=== PATIENT | female | born 1980 | race Asian ===

== ENCOUNTER 2016-07-02 16:53 | Inpatient (IN) | payer OTHER ==
[~2016-07-02] VITALS: Ht 161.3 cm; Wt 63.5 kg
[2016-07-02] MEDS ORDERED: Lactated Ringer's 1,000 ML IV PRN (17:29)
[2016-07-02] MEDS ORDERED: Sodium Chloride LOK Flush 10 mL Syringe IVFLUSH PRN (17:30)
--- NOTE | 2016-07-02 18:13 | PCM.HPOB ---
Subjective Date of Service: Jul 02, 2016 Referring Provider: Admitting Physician: Seth Tran MD Primary Care Physician: Nopcp Attending Physician: Seth Tran MD Chief Complaint vasaprevia History of Present History of Present Illness 35-year-old woman at 36 weeks gestation admitted to the [facility] for section after Dr. Tran was notified of obstetric ultrasound showing vasa previa. She was seen in the [facility] with you after feeling "faint" and having a pain in her right lower quadrant which resolved after patient was placed on her side for a period of time.-History per patient labs: A positive Antibody screen negative RPR and HIV screens were nonreactive Rubella and Varicella immune Hepatitis B surface antigen and hepatitis C negative. Gonorrhea and Chlamydia negative Hemoglobin A1c 5.8 12/10/2015. Group B strep status unknown Mild microcytic anemia hemoglobin 10.9, MCV 73 as of mid May. She is on ferrous sulfate, vitamin, vitamin C. Obstetrical Complications: Other (vasa previa, placenta previa) Past Medical History Obstetrical History: None Gynecologic History: None Medical History: Denies any medical history Surgical History: Denies any previous surgeries Social History: Patient is from the [facility]. Lives with and mother and [id number]. Abuse screening negative with patient alone in room. Hx Tobacco Use: No Smoking Status: Never Smoker Hx Alcohol Use: No Hx Substance Use: No Past Family History Living Arrangement: with Family Genetic Screening/Counseling Genetic Screening/Counseling: Unknown (patient denies having any headache screens performed. Patient claims to have been told she has thalassemia beta, but no information on what subtype or carrier status.) Baby father-had child w defect: No Review of Systems Constitutional: Y: Dizziness (in the past week), Change of appitite, Fever Eyes: Denies: Blurred Vision ENT: Denies: Nasal Congestion, Ulcers/Sores in Mouth Cardiovascular: Denies: Chest Pain Respiratory: Denies: Cough, Pleuritic Chest Pain, Wheezing Gastrointestinal: Denies: Abdominal Pain Genitourinary: Denies: Dysuria, Hematuria Musculoskeletal: Denies: Neck Pain, Redness Skin/Breasts: Denies: Discharge Skin: Denies: Bruising Neurological: Reports: Dizziness, Weakness (in the last week), Denies: Change in Speech, Numbness Psychologic: Denies: Depression Medications Home medications Daily vitamin Ferrous sulfate Allergy Coded Allergies: No Known Drug Allergies (Verified Allergy, Unknown, 06/24/16) Exam Vital Signs 133/82 83 bpm 98.2F 140 pounds 0 pain Exam 140 bpm baseline, moderate variability 15 x 15 Objective Patient is lying in bed in no apparent distress, accompanied by . Constitutional: Well-developed, Well-nourished, Normal habitus HEENT: Atraumatic, PERRLA, EOMI, Scleral Anicteric, Mucous Membr Moist/[place] Lungs: Clear to Auscultation, Normal Air Movement Heart: Regular Rate/Rhythm, Normal S1, Normal S2, No Murmurs/Rubs/Gallops Abdomen: Gravid, No tenderness Lymphatic: Normal: Axilla Palpation of Nodes, Neck Palpation of Nodes Extremities: Pulses Palpable x4, Warm Neurological/Psychiatric: Alert, Oriented X3, Cooperative, No Acute Distress Neuro: Grossly Neurologically Intact, Reflexes 2+, No Clonus noted Labs/Diagnostics Labs CBC pending Cross and match pending Ultra Sound Ultrasonogram is not available to me at this time. This verbally conveyed by the reading radiologist and the attending physician that patient had blood vessels in front of the cervix consistent with vasa previa Maternal Blood Type: A Hx Rho(D) Immune Globulin: No Group B Strep Results: Not done Previous with GBS: No Rubella: Immune Lab History: Positive for: Hx Chicken Pox, Negative for: Hx Gonorrhea, Hx HIV, Hx Herpes, Hx Syphilis OB Intrapartum Assessment/Plan Assessment 35-year-old woman, , 36 weeks gestation, advanced maternal age, unremarkable laboratory work, diagnosis of marginal placenta previa, new diagnosis of vasa previa. No sign of distress. Problems: (1) Advanced maternal age (AMA) in Status: Acute ICD Code: 659.60 (2) Vasa previa Status: Acute ICD Code: O69.4XX0 Pain Evaluation: Adequate Pain Control Intrapartum plan Patient is being admitted for observation with the plan to do section tomorrow at 7:30 AM. Continue to monitor mother and baby on continuous heart rate monitor. No vaginal checks, no cervical checks no instrumentation. Nothing by mouth after midnight Plan was discussed with patient, in the room, questions were answered, patient stated understanding and agreement. Attending Statement The patient was seen and examined together with Dr. Zuhair Flood DO 2016 and I agree with the history, exam and plan as outlined in the note above. Zuhair Toro DO Jul 02, 2016 18:04 Seth Tran MD Jul 04, 2016 08:01
[2016-07-02 18:48] LABS: Mean Corpuscular Volume 69.8 fL (81-100)
[2016-07-03] MEDS ORDERED: Carboprost 250 mCg/mL Inj IM PRN ×2 (06:00→09:10)
[2016-07-03] MEDS ORDERED: Sodium Citrate-Citric Acid 15 mL Solution PO SCH (06:00)
[2016-07-03] MEDS ORDERED: Methylergonovine 0.2 mg/mL Inj IM PRN ×2 (06:00→09:10)
[2016-07-03] MEDS ORDERED: Hemorrhage Kit, Post Partum XX ONE ×2 (06:00→09:10)
[2016-07-03] MEDS ORDERED: Oxytocin 10 Unit/mL Inj IM PRN ×2 (06:00→09:10)
[2016-07-03] MEDS ORDERED: CeFAZolin Inj 2 GM in IV Premix 1 EACH IV ONE (07:40)
[2016-07-03] MEDS ORDERED: CeFAZolin 2 Gm/50 mL D5W Duplex Bag IV ONE (07:40)
[2016-07-03] MEDS ORDERED: Lactated Ringer's 1,000 ML IV PRN (07:44)
--- NOTE | 2016-07-03 07:44 | PCM.HPANE ---
Patient Data Surgeon Admitting Provider:Seth Tran MD Attending Provider:Seth Tran MD Primary Care Physician:Katherine Other Provider: Reason for Visit Vasaprevsoo VASANAYELI Ht/WT & BMI Body Mass Index Allergies Coded Allergies: No Known Drug Allergies (Verified Allergy, Unknown, 06/24/16) Diabetes History Hx Diabetes?: No MRSA MRSA: No Medications Hypertension Medication: No Home Meds Incl Beta Susan: No History History of ENT Problems?: No Hx of Heart Problems?: No Hx of Respiratory Problem?: No Hx Neurologic Problems?: No Hx of GI Problems?: No Hx of Problems?: No Female Hx: Positive for:: Currently (vasa previa, low lying placenta) Hx Musculoskeletal Problems?: No Hx of Psycho/Social Problems?: No Hx Surgeries?: No Hx Any Other Health Problems?: No Hx Alcohol Use: NoHx Substance Use: No Smoking Status: Never Smoker Stop/Bang EWELINA Risk Assessment: Low Risk, <3 Yes Risk Assessment Category Category 1A: Patient has history of documented sleep apnea, and HAS NOT received any narcotic, sedative or anesthesia administration during this stay. Category 1B: Patient has history of documented sleep apnea, and HAS received any narcotic , sedative or anesthesia administration during this stay Category 2: Patient has SUSPECTED Obstructive Sleep Apnea, and HAS received any narcotic , sedative or anesthesia administration during this stay. Category 3: Patient has SUSPECTED Obstructive Sleep Apnea and HAS NOT received narcotic, sedative or anesthesia administration during this stay. Category 4: Outpatient in Procedural Areas with known sleep apnea or who screen positive for High Risk via the STOP/BANG questionnaire. Exam Exam General Appearance: Alert, Oriented X3, Cooperative, No Acute Distress HEENT/AIRWAY: MP 2 Lungs: Clear to Auscultation, Normal Air Movement Heart: Exam Unremarkable, Regular Rate/Rhythm, No Murmurs/Rubs/Gallops Meds/Labs/Diagnostics Admission Meds Current Medications Citric Acid/ Sodium Citrate (Bicitra) 30 ml PREOP PO Last administered on t 06:01; Start 07/03/16 at 06:00; Stop 07/03/16 at 06:01; Status DC Labs Test 07/02/16 18:20 White Blood Count 8.6th/mm3 (3.8-10.1) Red Blood Count 5.13mil/mm3 (3.90-5.20) Hemoglobin 11.8g/dL (12.0-15.6) Hematocrit 35.8% (35.0-46.0) Mean Corpuscular Volume 69.8fL (81-100) Mean Corpuscular Hemoglobin 23.0pg (27.0-35.0) Mean Corpuscular Hemoglobin Concent 33.0% (32.0-37.0) Red Cell Distribution Width 14.8% (12.3-15.4) Platelet Count 312bil/L (150-400) Plan Impression Patient chart reviewed, patient interviewed and anesthestic plan with risks, benefits, and alternatives discussed, and informed consent obtained. ASA Physical Status: ASA3 Severe Disease Anesthetic Plan: SAB Bene/Risks/Altern/Consents: Yes HP Complete Prior to Induction: Yes Other 2 units of prbcs available in hospital. Tom Su MD Jul 03, 2016 07:18
[2016-07-03] MEDS ORDERED: MetoCLOpramide 5 mg/mL 2 mL Inj IVPUSH PRN (07:45)
[2016-07-03] MEDS ORDERED: fentaNYL-PF 50 mCg/mL 2 mL Inj IVPUSH PRN (07:45)
[2016-07-03] MEDS ORDERED: HYDROmorphone 1 mg/mL Inj IVPUSH PRN (07:45)
[2016-07-03] MEDS ORDERED: Atropine 0.4 mg/mL Inj IV PRN (07:45)
[2016-07-03] MEDS ORDERED: EPHEDrine Sulfate 50 mg/mL Inj IVPUSH PRN (07:45)
[2016-07-03] MEDS ORDERED: Ondansetron 2 mg/mL 2 mL Inj IVPUSH PRN (07:45)
[2016-07-03] MEDS ORDERED: Morphine PF 1 mg/mL 10 mL Inj INTRATHEC ONE (07:45)
[2016-07-03] MEDS ORDERED: Oxytocin 10 Unit/mL Inj ONE (08:37)
[2016-07-03] MEDS ORDERED: Bupiv-Spinal 0.75%/Dex 8.25% 2 mL Inj ONE (08:37)
[2016-07-03] MEDS ORDERED: EPHEDrine/NS 5 mg/mL 5 mL Syringe ONE (08:37)
[2016-07-03] MEDS ORDERED: Ondansetron 2 mg/mL 2 mL Inj ONE (08:37)
[2016-07-03] MEDS ORDERED: Phenylephrine/NS-PF 100 mCg/mL 5 mL Syringe IVPUSH ONE (08:37)
[2016-07-03] MEDS ORDERED: Sodium Chloride LOK Flush 10 mL Syringe IVFLUSH PRN (09:10)
[2016-07-03] MEDS ORDERED: LANOlin HPA 7 Gm Ointment TOPICAL PRN (09:10)
[2016-07-03] MEDS ORDERED: hydrOXYzine Pamoate 25 mg Capsule PO PRN (09:10)
[2016-07-03] MEDS: Lactated Ringer's 1,000 ML IV SCH ×2 (09:10→18:03)
[2016-07-03] MEDS ORDERED: Oxytocin 30 Units/500 mL LR 30 UNITS in IV Premix 1 EACH IV PRN (09:10)
--- NOTE | 2016-07-03 09:25 | PCM.ANEP1 ---
Post Anesthesia Phase 1 PACU Phase 1 Assessment Date of Service: Jul 02, 2016 Vital Signs BP: 103/58 HR: 77 SpO2: 100% T: 36.9 Anesthetic Administered: SAB Level of Alertness: Awake, talking ARMAS's with Equal Strength: No (residual SAB) Pain: No Nausea or Vomiting: No Oxygen Delivery: Room Air Lungs: Clear to Auscultation, Normal Air Movement Dermatome Level: T8 (Costal Margin) Tom Su MD Jul 03, 2016 09:25
[2016-07-03] MEDS ORDERED: Morphine PF 1 mg/mL 10 mL Inj ONE (09:27)
--- NOTE | 2016-07-03 09:30 | PCM.OBCSEC ---
Delivery Date of Service Jul 03, 2016 Pre Procedure Diagnosis 1. Vasa Previa 2. Low-lying placenta 3. Advanced maternal age Post Procedure Diagnosis 1. Vasa Previa 2. Advanced maternal age 3. Intramural uterine fibroid 4. Complete placenta previa Procedure 1. Primary classical delivery through a Pfannenstiel incision. Procedure: Planned Minister Of Religion/Utility Mechanic Supervisor Surgeon: Seth Tran MD Assistants: Dara Taylor was necessary for this procedure to help with exposure and her surgical expertise. Indication for Procedure Patient's a 35-year-old 1 para 0 at 36 weeks gestation who was noted to have a low-lying placenta with vasa previa on ultrasound on 07/02/2016. Findings Intraoperative findings showed a uterus that was irregular shaped due to a fibroid in the left cornual region. The infant was in a transverse lie with back down. The lower uterine segment contained very large vessels that were apparent on the surface. The fallopian tubes and ovaries were normal in appearance bilaterally however they were difficult to visualize due to distorted uterine anatomy and posterior location. The endometrial cavity was deviated to the right side and the placenta was posterior and was felt to cover the cervical os which was deviated to the right. Obstetrical Findings: (Female) Weight (2407 grams) Presentation 1 minute (7) 5 minutes (8) 10 minutes (9) Placenta (Intact/Normal) Complications none Analgesia/Medications Obstetrical Anesthesia: Other (Spinal) Procedure Details Patient was taken to the operating room where her spinal anesthesia was found to be adequate. She was placed in a lithotomy position in a leftward tilt and prepared and draped in the normal sterile fashion. A Pfannenstiel incision was made with scalpel and this incision was carried down to the underlying fascia. The fascia was nicked in the midline and this incision was extended laterally with the Anderson scissors. The underlying rectus muscle was dissected off with blunt and sharp dissection. The rectus muscles were in midline and the peritoneum was tented up and entered sharply with the Metzenbaum scissors. This incision was extended superiorly and inferiorly and then expanded using the surgeon's hands and gentle traction. The lower uterine segment was identified a bladder flap was created. Due to large vessels over lower uterine segment and position of the infant a vertical midline incision was made high on the uterus and extended to the fundal region. The infant was rotated into a breech position and delivered in a standard breech fashion. The cord was doubly clamped and ligated after 1 minute and handed off to the awaiting Pediatricians. Cord blood was sent. The placenta was removed manually and the uterus was exteriorized and cleared of all clots and debris. The uterine incision was then repaired in 3 layers with 0 Vicryl suture. The gutters were irrigated with copious amounts of normal saline. Good hemostasis was assured. The uterus was returned to the patient's perineal cavity. The uterine incision was inspected a second time and noted to be hemostatic. The fascia was then reapproximated with 0 Vicryl suture in a running fashion. The subcutaneous layer was closed with 0 plain gut. The skin was closed with a 4-0 Monocryl in a subcutaneous fashion. Dermabond and Steri-Strips are applied. All lap, instrument, and needle counts were correct 2 at the procedure the patient was taken to her room awake and in good condition. Specimen Specimens: Placenta Input/Output Catheters: Urethral 2 Way Arnold Blood Loss & Administration Estimated Blood Loss: 500 Post Operative Plan Routine and postoperative care. Post delivery Condition: Mom stable Seth Tran MD Jul 03, 2016 09:30
--- NOTE | 2016-07-03 12:56 | PCM.ANEP2 ---
Post Anesthesia Evaluation ASA/CMS Post Anesthesia VS in Patient's Normal Range?: Yes Resp Stable; Airway Patent?: Yes CV Function & Hydration Stable: Yes Mental Status Recovered?: Yes Pain control Satisfactory?: Yes N/V Control Satisfactory?: Yes Tom Su MD Jul 03, 2016 12:55
[2016-07-04] MEDS: oxyCODONE-Acetamin 5-325 mg Tablet PO PRN ×2 (04:01→08:41)
[2016-07-04 06:32] LABS: Mean Corpuscular Hemoglobin 23.2 pg (27.0-35.0); Mean Corpuscular Volume 71.6 fL (81-100)
--- NOTE | 2016-07-04 07:09 | PCM.PNOBPP ---
Subjective Date of Service Jul 04, 2016 Post : Primary Ceserean Delivery Visit History 35-year-old now woman at 36 weeks gestation admitted to the [facility] for section after obstetric ultrasound revealed vasa previa. Previous obstetrical ultrasound on 06/02/2016 showed persistent marginal placenta previa with the inferior edge of posterior placenta 0.7 cm from internal os. labs: A positive Antibody screen negative RPR and HIV screens were nonreactive Rubella and Varicella immune Hepatitis B surface antigen and hepatitis C negative. Gonorrhea and Chlamydia negative Hemoglobin A1c 5.8 12/10/2015. Group B strep status unknown Mild microcytic anemia hemoglobin 10.9, MCV 73 as of mid May. She is on ferrous sulfate, vitamin, vitamin C. Underwent yesterday (post op day 1) with an EBL of 500. Baby was 5lbs 5oz with APGARS 7,8, & 9. Subjective Doing well. Pain under control. Has changed pads three times without saturation. Has some lightheadedness when ambulating. Arnold has been removed. Lochia: Normal Pain Management: PO pain meds Gastrointestinal: Good Appetite, No N/V, Passing Flatus Postop Activity: Ambulating Independently Group B Strep Results: Not done Rubella: Immune Blood Type: A Labs Laboratory Tests 07/04/16 06:15: White Blood Count 14.0, Red Blood Count 3.70, Hemoglobin 8.6, Hematocrit 26.5, Mean Corpuscular Volume 71.6, Mean Corpuscular Hemoglobin 23.2, Mean Corpuscular Hemoglobin Concent 32.5, Red Cell Distribution Width 14.3, Platelet Count 228 Exam Vital Signs Vital Signs 106/58 76 16 36.6 Vital Signs: VS reviewed, stable Exam Abdomen: Fundus firm, Abdomen appropriately tender, Abdomen non-distended : Arnold catheter (Removed minutes before encounter. No voiding on her own as of yet.) Extremities: No cords, Normal pulses, No tenderness/swelling, No edema Lungs: Clear to Auscultation, Normal Air Movement Heart: Regular Rate/Rhythm, Normal S1, Normal S2, No Murmurs/Rubs/Gallops General: Alert, Oriented X3, Cooperative, No Acute Distress Surgical Wound : Wound Location/Description Bandages in place, clean. Dressing & Drainage Status: Dry & Intact, No Odor OB Post Assessment/Plan Assessment 35yo Woman, now , S/P at 36wks gestation due to finding of vasa previa, post op day 1 recovering well without pain or signs of hemorrhagic complications. Hgb 8.4 this AM. Problems: (1) Advanced maternal age (AMA) in Status: Acute ICD Code: 659.60 (2) Vasa previa Status: Acute ICD Code: O69.4XX0 Pain Management: Oral analgesics working well. Pain Evaluation: Adequate Pain Control Post plan: Continue routine post care, Discharge home tomorrow Plan: Encourage ambulation Encourage breast feeding Pain management as above. Re-check H/H tomorrow morning. Zuhair Toro DO Jul 04, 2016 06:52
[2016-07-04] MEDS: Ascorbic Acid 500 mg Tablet PO SCH (08:39)
[2016-07-04] MEDS: Lactated Ringer's 1,000 ML IV SCH ×2 (09:10→22:38)
[2016-07-05] MEDS: oxyCODONE-Acetamin 5-325 mg Tablet PO PRN (00:12)
--- NOTE | 2016-07-05 09:00 | PCM.PNOBPP ---
Subjective Date of Service Jul 05, 2016 Post : Primary Ceserean Delivery Visit History 35-year-old G1 now P1 who is post-operative day 2 s/p section at 36 weeks gestation after obstetric ultrasound (06/02/16) revealed vasa previa and a low-lying placenta. labs: A positive Antibody screen negative RPR and HIV screens were nonreactive Rubella and Varicella immune Hepatitis B surface antigen and hepatitis C negative. Gonorrhea and Chlamydia negative Hemoglobin A1c 5.8 12/10/2015. Group B strep status unknown Mild microcytic anemia hemoglobin 10.9, MCV 73 as of mid May. She is on ferrous sulfate, vitamin, vitamin C. Underwent yesterday (post op day 1) with an EBL of 500. Baby was 5lbs 5oz with APGARS 7,8, & 9. Subjective Pt doing well this morning. Pain well controlled. She is ambulating and voiding without difficulty. is going well with supplemental bottle feeding. Lochia: Normal Pain Management: PO pain meds Gastrointestinal: Good Appetite, No N/V, Passing Flatus Postop Activity: Ambulating Independently Group B Strep Results: Not done Rubella: Immune Blood Type: A RH Type: Positive Labs Laboratory Tests 07/04/16 06:15: White Blood Count 14.0, Red Blood Count 3.70, Hemoglobin 8.6, Hematocrit 26.5, Mean Corpuscular Volume 71.6, Mean Corpuscular Hemoglobin 23.2, Mean Corpuscular Hemoglobin Concent 32.5, Red Cell Distribution Width 14.3, Platelet Count 228 Exam Vital Signs Vital Signs Temp 98.6F, BP 132/84, HR 89, RR 18 Vital Signs: VS reviewed, stable Exam Abdomen: Fundus firm, Abdomen soft, Abdomen appropriately tender : Voiding without difficulty Extremities: No tenderness/swelling Lungs: Clear to Auscultation Heart: Regular Rate/Rhythm, No Murmurs/Rubs/Gallops General: Alert, Oriented X3 Surgical Wound : Incision General Appearence: Steri Strips, Intact, Well Approximated, No Erythemia, No Discharge OB Post Assessment/Plan Assessment 35-year-old G1 now P1 who is post-operative day 2 s/p section at 36 weeks gestation after obstetric ultrasound (06/02/16) revealed vasa previa and a low-lying placenta who is recovering appropriately or with X problem. Pain Evaluation: Adequate Pain Control Post plan: Continue routine post care Plan: Encourage ambulation Encourage breast feeding Pain management as above. Attending Statement The patient was seen and examined and I agree with the history, exam and plan as outlined in the note above. Doing well postoperative day#2, plan to discharge home today. Follow up in 2 weeks for incision check and six weeks for a check. Tabatha Cadena DO Jul 05, 2016 08:47 Estela Quinonez MD Jul 05, 2016 11:23
--- NOTE | 2016-07-05 09:06 | PCM.DIOB ---
Obstetrical Disch Instruction Date of Service: Jul 05, 2016 Dates of Hospitalization Date of Hospital Admission Jul 02, 2016 at 17:12 Providers Admitting Physician: Seth Tran MD Primary Care Physician: Katherine Attending Physician: Seth Tran MD Discharge Diagnosis Discharge Diagnosis Pre-term , s/p delivery Vasa Previa Advanced maternal age Intramural uterine fibroid Complete placenta previa Post Operative diagnosis 1. Vasa Previa 2. Advanced maternal age 3. Intramural uterine fibroid 4. Complete placenta previa Problems: Diet Discharge Diet: No restrictions Activity Discharge Activity-General: Pelvic Rest for 6 weeks, Ice incision 3-5 time/day for 20min, Activity as pain allows, No lifting >15 pounds for 2 weeks Dressing and Incisional Care Dressing Care: Allow Steri Stripes to fall off Hygiene: May shower Additional Instructions Discharge Instructions Continue your vitamin. Please take the iron and vitamin C together for your anemia. Do not take more pain medication (Percocet) than is necessary -- less is better. Percocet pills have Tylenol (acetaminophen) in them at 325mg per pill. Do not take Tylenol in addition to your pain medication but should take one or the other. Both iron and Percocet can give you constipation so you have also been given a prescription for docusate to keep you regular. Be sure to follow up in 2 weeks and then again in [address] [facility]. Pelvic rest for 6 weeks (nothing per vagina including intercourse, tampons) If you have a fever greater than 100.4, please call [facility]. There is always someone injection moulding machine operator to talk to. If you have an increase in bleeding, call [facility]. If you have a lot of bleeding suddenly, especially if you have symptoms of dizziness & weakness with it, get emergency help. When you see [facility] in two weeks, you will be informed of the results of all the labs. If you start experiencing extreme depression, especially if you feel that you are a danger to yourself or your family, seek emergency help. You have been through a lot -- BE SURE TO TAKE CARE OF YOURSELF. Follow Up Plan Follow Up Plan Follow up in 2 weeks and then again in 6 weeks. [facility] Call your provider for: Fever or Chills, Shortness of breath, Heavy vaginal bleeding, Excessive constipation Tabatha Cadena DO Jul 05, 2016 09:06
[2016-07-05] MEDS ORDERED: IBUP800T28 PO (09:10)
[2016-07-05] MEDS ORDERED: OXYC1TAB24 PO (09:10)
[2016-07-05] MEDS ORDERED: FERR-74 PO (09:10)
[2016-07-05] MEDS: Lactated Ringer's 1,000 ML IV SCH (09:10)
[2016-07-05] MEDS ORDERED: DOCU-41 PO (09:10)
[2016-07-05] MEDS ORDERED: Ascorbic Acid PO (09:10)
[2016-07-05 09:15] VITALS: BP 134/82; PULSE 89; RESP 16
[2016-07-05] MEDS: Ascorbic Acid 500 mg Tablet PO SCH (09:38)
--- NOTE | 2016-07-05 10:41 | PCM.DC.OB ---
Obstetrical Discharge Summary Date of Service Jul 05, 2016 Date of hospital admission Jul 02, 2016 at 17:12 Date of Discharge: Jul 05, 2016 Providers Admitting Physician: Steh Tran MD Primary Care Physician: Katherine Attending Physician: Seth Tran MD Diagnosis at Time of Discharge Pre-term s/p delivery Vasa previa Intramural uterine fibroid Complete placenta previa Advanced maternal age Problems: Invasive procedures Primary classical delivery through a Pfannenstiel incision. Date of Procedure: Jul 03, 2016 Brief History and Physical: 35-year-old G1 now P1 who is post-operative day 2 s/p section at 36 weeks gestation after obstetric ultrasound (06/02/16) revealed vasa previa and a low-lying placenta who is recovering appropriately. and delivery complicated by advanced maternal age, vasa Previa, intramural uterine fibroid and complete placenta previa. labs: A positive Antibody screen negative RPR and HIV screens were nonreactive Rubella and Varicella immune Hepatitis B surface antigen and hepatitis C negative. Gonorrhea and Chlamydia negative Hemoglobin A1c 5.8 12/10/2015. Group B strep status unknown Mild microcytic anemia hemoglobin 10.9, MCV 73 as of mid May. She is on ferrous sulfate, vitamin, vitamin C. Vital signs: T 98.6F, BP 132/84, HR 89, RR 18 Exam Abdomen: Fundus firm, Abdomen soft, Abdomen appropriately tender : Voiding without difficulty Extremities: No tenderness/swelling Lungs: Clear to Auscultation Heart: Regular Rate/Rhythm, No Murmurs/Rubs/Gallops General: Alert, Oriented X3 Surgical Wound : Incision General Appearence: Steri Strips, Intact, Well Approximated, No Erythemia, No Discharge . Hospital Course: 35y/o who presented to the [facility] at 36 weeks gestation and was admitted for section after an OB ultrasound on 07/02/16 revealed a low-lying placenta and vasa previa. Patient delivered via section on 07/03/16 without complication and is recovering appropriately. She was discharged home on post-operative day 2 in stable condition. . ([Ascorbic Acid]) 500 MG TABLET 500 MG PO DAILYWM Prescribed by: MARIVEL MARTINEZ DO Docusate Sodium (Colace) 100 Mg Capsule 100 MG PO BID Prescribed by: MARIVEL M BEUNING, DO Ferrous Sulfate (Feosol) 325 Mg Tablet 325 MG PO DAILY Prescribed by: MARIVEL MARTINEZ DO Ibuprofen (Ibuprofen) 800 Mg Tablet 800 MG PO Q8H PRN PRN For Pain Prescribed by: MARIVEL MARTINEZ DO oxyCODONE-Acetaminophen 5-325 mg (oxyCODONE-Acetaminophen 5-325 mg) 1 Each Tablet 1-2 TAB PO Q6H PRN PRN For Pain Prescribed by: MARIVEL MARTINEZ DO Follow-up plan Follow up in 2wks at [facility]. Discharge Diet: No restrictions Discharge Activity-General: Pelvic Rest for 6 weeks, Ice incision 3-5 time/day for 20min, Activity as pain allows, No lifting >15 pounds for 2 weeks Patient instructions Continue your vitamin. Please take the iron and vitamin C together for your anemia. Do not take more pain medication (Percocet) than is necessary -- less is better. Percocet pills have Tylenol (acetaminophen) in them at 325mg per pill. Do not take Tylenol in addition to your pain medication but should take one or the other. Both iron and Percocet can give you constipation so you have also been given a prescription for docusate to keep you regular. Be sure to follow up in 2 weeks and then again in 6 weeks at [facility]. Pelvic rest for 6 weeks (nothing per vagina including intercourse, tampons) If you have a fever greater than 100.4, please call [facility]. There is always someone stoneworking sander to talk to. If you have an increase in bleeding, call [facility]. If you have a lot of bleeding suddenly, especially if you have symptoms of dizziness & weakness with it, get emergency help. When you see [facility] in two weeks, you will be informed of the results of all the labs. If you start experiencing extreme depression, especially if you feel that you are a danger to yourself or your family, seek emergency help. You have been through a lot -- BE SURE TO TAKE CARE OF YOURSELF. Attending Statement: The patient was seen and examined and I agree with the history, exam and plan as outlined in the note above. Marivel Martinez DO Jul 05, 2016 09:10 Estela Quinonez MD Jul 05, 2016 11:27
--- NOTE | 2016-07-05 12:33 | NUR ---
Social Work: Family Assessment MOB: Anne Rodriguez FOB: Ramon Rodriguez NB: Lay Rodriguez Reason for Referral: FOB became angry when baby failed carseat check stating further hospitalization would cost "$50,000." SISAL OPERATOR referred for safety assessment and to provide resources. SISAL OPERATOR met with MOB and NB in the nursery. FOB not present as he has gone home to sleep. MOB apologizes for FOB's anger over the carseat and states that he is very concerned about financial responsibility and was very disappointed that they were not able to take the baby home today. MOB has no concerns about FOB's anger. MOB is very appropriate with NB during assessment. Per staff genetic counselor, both MOB and FOB have been very appropriate and present with NB care. All parties believe FOB is sleep deprived and overwhelmed with premature NB. Current Living Situation: MOB and FOB live together in a home in [place]. Previous Children/CPS History: This is the first child for both MOB and FOB. No CPS involvement Substance abuse Hx: No concerns noted by MOB during assessment. MH History: ARLEN denies any MH concerns for herself of FOB Source of Income: MOB and NB are covered under [facility] [employer]. No secondary insurance. MOB does not work and will be staying home with NB. Both MOB and FOB are concerned for financial responsibility. ARLEN states she did not know she could apply for [employer] as she is still applying for citizenship. SISAL OPERATOR provided [email or web address] information and informed her that she still qualifies despite citizenship status. MOB grateful to hear this. Abuse/DV History: MOB denies any DV or abuse between her and FOB. Supports: MOB states that FOBeatrice's family is close and that they are throwing them a baby shower once baby is discharged home. MOB states they have everything they need to care for the baby (crib, car seat, bottles). Assessment: MOB appears to be appropriate with NB and cites protective factors during assessment. Per staff genetic counselor, FOB has also been appropriate with NB during stay and his anger outburst during the carseat test was "out of character." MOB has no concerns about discharge home with NB. SISAL OPERATOR provided her with [facility] information packet including [place] information, community resources and [facility] Care Application for financial assistance. Social Work contact information left with MOB and staff genetic counselor. If FOB returns and has further questions or concerns. SISAL OPERATOR updated RN and supervisor farm equipment maintenance who will update agricultural inspector. MARIELLE Schwartz
--- NOTE | 2016-07-07 14:00 | PATH ---
SURGICAL PATHOLOGY Attending Physician:Seth Tran, CASE STATUS: Signed Out PATIENT NAME: TROY BRIONES PID: [id number] : 1980 DATE COLLECTED:07/03/2016 23:04 SPECIMEN: Placenta CLINICAL HISTORY: PLACENTA PREVIA, VASA PREVIA 1). PLACENTA FINAL DIAGNOSIS: 1.PLACENTA (375 GRAMS): MATURE PLACENTA WITH NO EVIDENCE OF CHORIOAMNIONITIS OR FUNISITIS. ICD10 CODE O44.10 GROSS DESCRIPTION: The specimen is received in formalin, labeled with the patient's name and consists of an intact placenta and includes placental disc (375 g, 16.6 x 14.8 x 2.8 cm), stump of umbilical cord (length-1.2 cm, diameter-1.3 x 1.1 cm) and membranes. The membranes are ruptured 4.5 cm from the free edge of the placenta and are translucent. The umbilical cord is attached 3.7 cm from the edge of the placenta and contains 3 vessels. The surface is smooth and shiny with no evidence of meconium. The maternal surface is dark maroon with normal cotyledon formation. The placental disc is spongy with no hematomas, infarcts, nodules, masses, or lesions. Section code: (A) edge of placenta with membranes, umbilical cord; (B, C) placenta, 2 full thickness sections. 07/05/16 MICRO DESCRIPTION: See diagnosis. ICD-9 CODES: CPT CODES: 1: 99551 Electronically Signed Out Brayden Miranda MD [facility] Pathology [facility] [address], [place] [address] Technical component performed at [facility], [facility] [address], [address]
== END 2016-07-05 14:12 | disposition home or self-care (01) | DRG 765 ==
LOC: FBCO 16:53 → FBC 17:12
PROVIDERS: ADMIT Obstetrics & Gynecology; ATTEND Obstetrics & Gynecology
PROC: 10S0XZZ Reposition Products of Conception, External Approach (ICD-10-PCS; 2016-07-03)
PROC: 10D00Z0 Extraction of Products of Conception, High, Open Approach (ICD-10-PCS; principal; 2016-07-03 07:48)
DX: O69.4XX0 Labor and delivery complicated by vasa previa, not applicable or unspecified (principal); O44.03 Complete placenta previa NOS or without hemorrhage, third trimester; O09.523 Supervision of elderly multigravida, third trimester; Z3A.36 36 weeks gestation of pregnancy; Z37.0 Single live birth; O34.13 Maternal care for benign tumor of corpus uteri, third trimester; D25.1 Intramural leiomyoma of uterus